=== PATIENT | male | born 1940 | race Caucasian/White ===

== ENCOUNTER 2019-09-26 14:52 | Emergency (ER) | payer OTHER ==
[~2019-09-26] VITALS: Ht 172.7 cm; Wt 100.0 kg
[2019-09-26] MEDS ORDERED: ATOR1TAB19 PO (15:06)
[2019-09-26] MEDS ORDERED: FLOM0.4C39 PO (15:06)
[2019-09-26] MEDS ORDERED: METO200T28 PO (15:06)
[2019-09-26 16:36] LABS: BASO % 0.5 % (0.0-1.0); EOS # 0.1 10^3/uL (0.0-0.5); EOS % 1.6 % (0.0-3.0); HEMATOCRIT 42.8 % (42.0-52.0); HEMOGLOBIN 13.7 g/dl (13.5-17.5); LYMPH # 0.7 10^3/uL (1.5-5.0); LYMPH % 8.2 % (24.0-44.0); MEAN CORPUSCULAR HEMOGLOBIN 29.9 pg (27.0-33.0); MEAN CORPUSCULAR VOLUME 93.4 fl (80.0-96.0); MONO # 0.8 10^3/uL (0.0-0.8); MONO % 9.1 % (0.0-5.0); NEUTROPHILS # 6.9 10^3/uL (1.5-8.5); NEUTROPHILS % 80.2 % (36.0-66.0); PLATELET COUNT, AUTOMATED 200 10^3/uL (150-450); RED BLOOD COUNT 4.58 10^6/uL (4.30-6.10); WHITE BLOOD COUNT 8.6 10^3/uL (4.0-10.0)
--- NOTE | 2019-09-26 19:12 | REPVR ---
PROCEDURE INFORMATION: Exam: US Pelvis Limited, Male Exam date and time: 09/26/2019 6:25 PM Age: 79 years old Clinical history: Bladder; Urine retention; Additional info: Urinary retention TECHNIQUE: Imaging protocol: Real-time pelvic ultrasound with image documentation. COMPARISON: No relevant prior studies available. FINDINGS: Bladder: Prevoid bladder volume 1925 cc. Post void bladder volume 1638 cc. 85.1% post void residual. Left ureteral jet is not seen. IMPRESSION: 85.1% post void residual. Electronically signed by: Jacoby Ny On 09/26/2019 19:11:57 PM
[2019-09-26] MEDS ORDERED: NS 1,000 ML IV ONE (19:30)
[2019-09-26] MEDS ORDERED: LIDOCAINE 2% 5ML JELLY UROJET TOP ONE (19:30)
--- NOTE | 2019-09-26 20:05 | REPVR ---
PROCEDURE INFORMATION: Exam: CT Abdomen And Pelvis Without Contrast Exam date and time: 09/26/2019 7:40 PM Age: 79 years old Clinical history: Abdominal pain; Generalized; Patient HX: Bun 53 creat 2.0; Additional info: ? Urinary obstruction TECHNIQUE: Imaging protocol: Computed tomography of the abdomen and pelvis without contrast. Radiation optimization: All CT scans at this facility use at least one of these dose optimization techniques: automated exposure control; mA and/or kV adjustment per patient size (includes targeted exams where dose is matched to clinical indication); or iterative reconstruction. COMPARISON: US Abdomen 2019-09-26 18:23 FINDINGS: Limitations: Study is limited by the absence of contrast. Tubes, catheters and devices: A balloon bladder catheter is present. Lungs: Dependent subsegmental pulmonary atelectasis. Liver: Normal. No mass. Gallbladder and bile ducts: Normal. No calcified stones. No ductal dilation. Pancreas: Normal. No ductal dilation. Spleen: Normal. No splenomegaly. Adrenals: Normal. No mass. Kidneys and ureters: Multiple left renal cysts measuring up to 3.9 cm. Stomach and bowel: Right rectal wall thickening, suspicious for neoplasm or proctitis, recommend direct correlation. Constipation. Appendix: No evidence of appendicitis. Intraperitoneal space: Unremarkable. No free air. No significant fluid collection. Vasculature: Unremarkable. No abdominal aortic aneurysm. Lymph nodes: Unremarkable. No enlarged lymph nodes. Bladder: Bladder still distended. Reproductive: Prostate gland mild enlargement. Bones/joints: Unremarkable. No acute fracture. Soft tissues: Small right inguinal hernia. IMPRESSION: 1. A balloon bladder catheter is present. Bladder still distended. 2. Right rectal wall thickening, suspicious for neoplasm or proctitis, recommend direct correlation. Electronically signed by: Jacoby Ny On 09/26/2019 20:04:41 PM
[2019-09-26 20:56] VITALS: BP 129/59
[2019-09-26] MEDS ORDERED: HYDR25SU23 PR (21:10)
[2019-09-26] MEDS ORDERED: COLA100C5 PO (21:10)
== END 2019-09-26 22:09 | disposition left against medical advice (07) ==
LOC: M ED 14:52
DX: R33.9 Retention of urine, unspecified (principal); K62.89 Other specified diseases of anus and rectum; S37.009A Unspecified injury of unspecified kidney, initial encounter; X58.XXXA Exposure to other specified factors, initial encounter; Y93.9 Activity, unspecified; I10 Essential (primary) hypertension; E78.5 Hyperlipidemia, unspecified; Z53.29 Procedure and treatment not carried out because of patient's decision for other reasons; Z87.891 Personal history of nicotine dependence; Z96.0 Presence of urogenital implants

== ENCOUNTER 2022-04-19 14:11 | Inpatient (IN) | payer MEDICARE, OTHER ==
[~2022-04-19] VITALS: Ht 174 cm; Wt 92.7 kg
[~2022-04-19 14:11] MED LIST: ATOR1TAB19 PO; COLA100C5 PO; FLOM0.4C39 PO; HYDR25SU23 PR; METO200T28 PO
[2022-04-19 15:20] LABS: BASO % 0.2 % (0.0-1.0); HEMATOCRIT 49.8 % (42.0-52.0); HEMOGLOBIN 16.7 g/dl (13.5-17.5); LYMPH # 0.6 10^3/uL (1.5-5.0); LYMPH % 4.8 % (24.0-44.0); MEAN CORPUSCULAR HEMOGLOBIN 30.4 pg (27.0-33.0); MEAN CORPUSCULAR HGB CONC 33.5 g/dl (32.0-36.5); MEAN CORPUSCULAR VOLUME 90.7 fl (80.0-96.0); MONO # 0.9 10^3/uL (0.0-0.8); MONO % 7.4 % (2.0-8.0); NEUTROPHILS # 10.9 10^3/uL (1.5-8.5); NEUTROPHILS % 87.2 % (36.0-66.0); PLATELET COUNT, AUTOMATED 204 10^3/uL (150-450); RED BLOOD COUNT 5.49 10^6/uL (4.30-6.10); WHITE BLOOD COUNT 12.5 10^3/uL (4.0-10.0)
[2022-04-19 15:41] LABS: ERYTHROCYTE SEDIMENTATION RATE 6 mm/hr (0-20)
[2022-04-19 15:55] LABS: RSV AMPLIFICATION NEGATIVE (NEGATIVE)
[2022-04-19 16:01] LABS: ALBUMIN 3.7 GM/DL (3.2-5.2); BILIRUBIN,DIRECT 0.3 MG/DL (0.0-0.2); C REACTIVE PROTEIN QUANTITATIV 1.71 MG/DL (0.00-0.30); CALCIUM LEVEL 9.7 MG/DL (8.8-10.2); CREATININE FOR GFR 1.53 MG/DL (0.70-1.30); GLOMERULAR FILTRATION RATE 46.9 (>35); POTASSIUM SERUM 4.8 MEQ/L (3.5-5.1); THYROID STIMULATING HORMONE 0.622 uIU/ML (0.358-3.740); TOTAL PROTEIN 7.5 GM/DL (6.4-8.2)
[2022-04-19 16:18] LABS: CK-MB VALUE MASS 70.6 NG/ML (<3.6); MB/CK RELATIVE INDEX 2.29 (< OR =4)
[2022-04-19] MEDS ORDERED: NS 500 ML IV ONE (17:15)
[2022-04-19] MEDS ORDERED: NS 1,000 ML IV ONE (18:30)
[2022-04-19] MEDS ORDERED: METO50TA7 PO (18:40)
[2022-04-19] MEDS ORDERED: FLOM0.4C39 PO (18:40)
[2022-04-19] MEDS ORDERED: LISI40TA4 PO (18:40)
[2022-04-19] MEDS ORDERED: ATOR1TAB21 PO (18:40)
[2022-04-19] MEDS ORDERED: FINA5TAB2 PO (18:40)
[2022-04-19 19:05] LABS: MAGNESIUM LEVEL 2.1 MG/DL (1.8-2.4)
[2022-04-19] MEDS ORDERED: HOME MED LIST COMPLETE! XX SCH (19:15)
[2022-04-19] MEDS ORDERED: amLODIPine 5 MG TAB PO ONE (20:00)
[2022-04-19 22:20] VITALS: BP 136/74
[2022-04-20] MEDS ORDERED: UNRESOLVED CLARIFICATION ENTRY XX SCH (00:01)
[2022-04-20 06:19] VITALS: BP 157/91
[2022-04-20 07:27] LABS: BASO # 0.1 10^3/uL (0.0-0.2); BASO % 0.6 % (0.0-1.0); EOS # 0.1 10^3/uL (0.0-0.5); EOS % 0.9 % (0.0-3.0); HEMATOCRIT 47.7 % (42.0-52.0); HEMOGLOBIN 15.5 g/dl (13.5-17.5); LYMPH # 0.8 10^3/uL (1.5-5.0); LYMPH % 8.8 % (24.0-44.0); MEAN CORPUSCULAR HEMOGLOBIN 29.4 pg (27.0-33.0); MEAN CORPUSCULAR HGB CONC 32.5 g/dl (32.0-36.5); MEAN CORPUSCULAR VOLUME 90.3 fl (80.0-96.0); MONO # 0.8 10^3/uL (0.0-0.8); MONO % 8.5 % (2.0-8.0); NEUTROPHILS # 7.4 10^3/uL (1.5-8.5); PLATELET COUNT, AUTOMATED 144 10^3/uL (150-450); RED BLOOD COUNT 5.28 10^6/uL (4.30-6.10); WHITE BLOOD COUNT 9.1 10^3/uL (4.0-10.0)
[2022-04-20 07:59] LABS: BLOOD UREA NITROGEN 23 MG/DL (7-18); CALCIUM LEVEL 9.2 MG/DL (8.8-10.2); CARBON DIOXIDE LEVEL 28 MEQ/L (21-32); CHLORIDE LEVEL 111 MEQ/L (98-107); CREATININE FOR GFR 1.21 MG/DL (0.70-1.30); GLOMERULAR FILTRATION RATE > 60.0 (>35); GLUCOSE, FASTING 103 MG/DL (70-100); POTASSIUM SERUM 3.6 MEQ/L (3.5-5.1); SODIUM LEVEL 145 MEQ/L (136-145)
[2022-04-20] MEDS: FINASTERIDE 5MG TAB PO SCH (09:06)
[2022-04-20] MEDS: METOPROLOL TART 50 MG TAB PO SCH ×2 (09:08→20:19)
[2022-04-20] MEDS: ATORVASTATIN 20 MG TAB PO SCH (09:08)
[2022-04-20] MEDS: TAMSULOSIN 0.4 MG CAP PO SCH (09:09)
[2022-04-20] MEDS: ENOXAPARIN 40MG/0.4ML SYRINGE (J1650 PER 10MG) SC SCH (09:10)
[2022-04-20 11:20] VITALS: BP 151/71
[2022-04-20] MEDS ORDERED: FUROSEMIDE 100MG/10ML VIAL (J1940) IV ONE (11:45)
[2022-04-20 12:00] VITALS: BP_SYST 123; BP_SYST 160; BP_DIAS 71; BP_DIAS 74
[2022-04-20] MEDS: ACETAMINOPHEN 500 MG TAB PO SCH ×2 (13:18→20:17)
[2022-04-20 14:00] VITALS: BP 140/59
[2022-04-20] MEDS: POTASSIUM CHLORIDE 10MEQ SR TABLET PO SCH ×2 (14:47→20:17)
[2022-04-20 21:00] VITALS: BP 123/60
[2022-04-21 02:00] VITALS: BP_SYST 123; BP_SYST 133; BP_DIAS 76; BP_DIAS 77
[2022-04-21 06:13] LABS: BASO # 0.1 10^3/uL (0.0-0.2); BASO % 0.7 % (0.0-1.0); EOS # 0.2 10^3/uL (0.0-0.5); EOS % 2.2 % (0.0-3.0); HEMATOCRIT 45.1 % (42.0-52.0); HEMOGLOBIN 14.5 g/dl (13.5-17.5); LYMPH # 0.8 10^3/uL (1.5-5.0); LYMPH % 10.4 % (24.0-44.0); MEAN CORPUSCULAR HEMOGLOBIN 29.4 pg (27.0-33.0); MEAN CORPUSCULAR HGB CONC 32.2 g/dl (32.0-36.5); MEAN CORPUSCULAR VOLUME 91.3 fl (80.0-96.0); MONO # 0.6 10^3/uL (0.0-0.8); MONO % 7.6 % (2.0-8.0); NEUTROPHILS # 5.7 10^3/uL (1.5-8.5); NEUTROPHILS % 78.8 % (36.0-66.0); PLATELET COUNT, AUTOMATED 144 10^3/uL (150-450); RED BLOOD COUNT 4.94 10^6/uL (4.30-6.10); WHITE BLOOD COUNT 7.2 10^3/uL (4.0-10.0)
[2022-04-21 06:29] VITALS: BP 130/72
[2022-04-21 06:41] LABS: BLOOD UREA NITROGEN 24 MG/DL (7-18); CALCIUM LEVEL 8.9 MG/DL (8.8-10.2); CARBON DIOXIDE LEVEL 29 MEQ/L (21-32); CHLORIDE LEVEL 110 MEQ/L (98-107); CREATININE FOR GFR 1.17 MG/DL (0.70-1.30); GLOMERULAR FILTRATION RATE > 60.0 (>35); GLUCOSE, FASTING 105 MG/DL (70-100); POTASSIUM SERUM 4.2 MEQ/L (3.5-5.1); SODIUM LEVEL 145 MEQ/L (136-145)
[2022-04-21 09:00] VITALS: BP_SYST 128; BP_SYST 132; BP_DIAS 75; BP_DIAS 76
[2022-04-21] MEDS: ATORVASTATIN 20 MG TAB PO SCH (09:05)
[2022-04-21] MEDS: ENOXAPARIN 40MG/0.4ML SYRINGE (J1650 PER 10MG) SC SCH (09:05)
[2022-04-21] MEDS: ACETAMINOPHEN 500 MG TAB PO SCH ×2 (09:05→20:18)
[2022-04-21] MEDS: FINASTERIDE 5MG TAB PO SCH (09:06)
[2022-04-21] MEDS: TAMSULOSIN 0.4 MG CAP PO SCH (09:06)
[2022-04-21] MEDS: POTASSIUM CHLORIDE 10MEQ SR TABLET PO SCH ×2 (09:06→20:19)
[2022-04-21] MEDS: METOPROLOL TART 25 MG TABLET PO SCH ×2 (09:11→20:19)
[2022-04-21] MEDS: KETOROLAC 30 MG/ML 1ML VIAL IV SCH (13:02)
[2022-04-21 14:00] VITALS: BP 133/74
[2022-04-21 20:02] VITALS: BP 134/69
[2022-04-21 21:00] VITALS: BP_SYST 146; BP_SYST 147; BP_DIAS 74
[2022-04-22] MEDS: KETOROLAC 30 MG/ML 1ML VIAL IV SCH ×2 (03:04→12:36)
[2022-04-22 05:26] VITALS: BP 165/77
[2022-04-22 06:36] LABS: BASO % 0.9 % (0.0-1.0); EOS # 0.2 10^3/uL (0.0-0.5); EOS % 4.9 % (0.0-3.0); HEMOGLOBIN 14.5 g/dl (13.5-17.5); LYMPH # 0.8 10^3/uL (1.5-5.0); LYMPH % 16.6 % (24.0-44.0); MEAN CORPUSCULAR HEMOGLOBIN 30.2 pg (27.0-33.0); MEAN CORPUSCULAR VOLUME 91.7 fl (80.0-96.0); MONO # 0.4 10^3/uL (0.0-0.8); MONO % 8.6 % (2.0-8.0); NEUTROPHILS # 3.1 10^3/uL (1.5-8.5); NEUTROPHILS % 68.8 % (36.0-66.0); PLATELET COUNT, AUTOMATED 126 10^3/uL (150-450); WHITE BLOOD COUNT 4.5 10^3/uL (4.0-10.0)
[2022-04-22 07:01] LABS: BLOOD UREA NITROGEN 27 MG/DL (7-18); CARBON DIOXIDE LEVEL 27 MEQ/L (21-32); CHLORIDE LEVEL 109 MEQ/L (98-107); GLOMERULAR FILTRATION RATE > 60.0 (>35); GLUCOSE, FASTING 96 MG/DL (70-100); POTASSIUM SERUM 4.4 MEQ/L (3.5-5.1); SODIUM LEVEL 143 MEQ/L (136-145)
[2022-04-22 09:00] VITALS: BP_SYST 138; BP_SYST 140; BP_DIAS 75; BP_DIAS 76
[2022-04-22] MEDS: POTASSIUM CHLORIDE 10MEQ SR TABLET PO SCH ×2 (09:12→20:37)
[2022-04-22] MEDS: FINASTERIDE 5MG TAB PO SCH (09:13)
[2022-04-22] MEDS: TAMSULOSIN 0.4 MG CAP PO SCH (09:13)
[2022-04-22] MEDS: METOPROLOL TART 25 MG TABLET PO SCH ×2 (09:13→20:37)
[2022-04-22] MEDS: ENOXAPARIN 40MG/0.4ML SYRINGE (J1650 PER 10MG) SC SCH (09:13)
[2022-04-22] MEDS: ACETAMINOPHEN 500 MG TAB PO SCH ×2 (09:13→20:37)
[2022-04-22] MEDS: ATORVASTATIN 20 MG TAB PO SCH (09:13)
[2022-04-22] MEDS ORDERED: FUROSEMIDE 40MG/4ML VIAL (J1940) IV SCH (11:15)
[2022-04-22] MEDS: FUROSEMIDE 40 MG TAB PO SCH (12:35)
[2022-04-22 14:00] VITALS: BP 124/63
[2022-04-22 22:00] VITALS: BP 152/91
[2022-04-22 22:46] VITALS: BP_SYST 147; BP_SYST 151; BP_DIAS 74; BP_DIAS 76
[2022-04-23] MEDS: KETOROLAC 30 MG/ML 1ML VIAL IV SCH ×3 (01:00→13:58)
[2022-04-23 06:00] VITALS: BP 146/87
[2022-04-23 08:10] LABS: BASO % 0.7 % (0.0-1.0); EOS # 0.2 10^3/uL (0.0-0.5); EOS % 3.7 % (0.0-3.0); HEMATOCRIT 46.1 % (42.0-52.0); HEMOGLOBIN 15.5 g/dl (13.5-17.5); LYMPH # 0.7 10^3/uL (1.5-5.0); LYMPH % 12.7 % (24.0-44.0); MEAN CORPUSCULAR HEMOGLOBIN 30.7 pg (27.0-33.0); MEAN CORPUSCULAR HGB CONC 33.6 g/dl (32.0-36.5); MEAN CORPUSCULAR VOLUME 91.3 fl (80.0-96.0); MONO # 0.4 10^3/uL (0.0-0.8); MONO % 8.2 % (2.0-8.0); NEUTROPHILS % 74.3 % (36.0-66.0); PLATELET COUNT, AUTOMATED 132 10^3/uL (150-450); RED BLOOD COUNT 5.05 10^6/uL (4.30-6.10); WHITE BLOOD COUNT 5.3 10^3/uL (4.0-10.0)
[2022-04-23 08:39] LABS: CREATININE FOR GFR 1.24 MG/DL (0.70-1.30); GLOMERULAR FILTRATION RATE 59.7 (>35); POTASSIUM SERUM 4.7 MEQ/L (3.5-5.1)
[2022-04-23] MEDS: ENOXAPARIN 40MG/0.4ML SYRINGE (J1650 PER 10MG) SC SCH (08:41)
[2022-04-23] MEDS: POTASSIUM CHLORIDE 10MEQ SR TABLET PO SCH ×2 (08:42→20:51)
[2022-04-23] MEDS: ACETAMINOPHEN 500 MG TAB PO SCH ×2 (08:42→20:51)
[2022-04-23] MEDS: FINASTERIDE 5MG TAB PO SCH (08:42)
[2022-04-23] MEDS: FUROSEMIDE 40 MG TAB PO SCH (08:42)
[2022-04-23] MEDS: TAMSULOSIN 0.4 MG CAP PO SCH (08:43)
[2022-04-23] MEDS: METOPROLOL TART 25 MG TABLET PO SCH ×2 (08:43→20:52)
[2022-04-23] MEDS: ATORVASTATIN 20 MG TAB PO SCH (08:43)
[2022-04-23 14:00] VITALS: BP 134/77
[2022-04-23 20:38] VITALS: BP 136/86
[2022-04-24] MEDS: KETOROLAC 30 MG/ML 1ML VIAL IV SCH (01:00)
[2022-04-24 05:09] VITALS: BP 146/77
[2022-04-24 06:14] LABS: BASO % 0.7 % (0.0-1.0); EOS # 0.2 10^3/uL (0.0-0.5); EOS % 4.3 % (0.0-3.0); HEMATOCRIT 47.6 % (42.0-52.0); HEMOGLOBIN 15.5 g/dl (13.5-17.5); LYMPH # 0.7 10^3/uL (1.5-5.0); LYMPH % 13.6 % (24.0-44.0); MEAN CORPUSCULAR HEMOGLOBIN 29.4 pg (27.0-33.0); MEAN CORPUSCULAR HGB CONC 32.6 g/dl (32.0-36.5); MEAN CORPUSCULAR VOLUME 90.3 fl (80.0-96.0); MONO # 0.5 10^3/uL (0.0-0.8); MONO % 9.2 % (2.0-8.0); NEUTROPHILS # 3.9 10^3/uL (1.5-8.5); PLATELET COUNT, AUTOMATED 133 10^3/uL (150-450); RED BLOOD COUNT 5.27 10^6/uL (4.30-6.10); WHITE BLOOD COUNT 5.4 10^3/uL (4.0-10.0)
[2022-04-24 06:30] LABS: BLOOD UREA NITROGEN 26 MG/DL (7-18); CALCIUM LEVEL 8.9 MG/DL (8.8-10.2); CARBON DIOXIDE LEVEL 28 MEQ/L (21-32); CHLORIDE LEVEL 105 MEQ/L (98-107); CREATININE FOR GFR 1.18 MG/DL (0.70-1.30); GLOMERULAR FILTRATION RATE > 60.0 (>35); GLUCOSE, FASTING 99 MG/DL (70-100); POTASSIUM SERUM 4.7 MEQ/L (3.5-5.1); SODIUM LEVEL 140 MEQ/L (136-145)
[2022-04-24] MEDS: FUROSEMIDE 40 MG TAB PO SCH (08:42)
[2022-04-24 08:43] VITALS: BP 129/74
[2022-04-24] MEDS: ATORVASTATIN 20 MG TAB PO SCH (08:43)
[2022-04-24] MEDS: FINASTERIDE 5MG TAB PO SCH (08:43)
[2022-04-24] MEDS: POTASSIUM CHLORIDE 10MEQ SR TABLET PO SCH (08:43)
[2022-04-24] MEDS: TAMSULOSIN 0.4 MG CAP PO SCH (08:43)
[2022-04-24] MEDS: METOPROLOL TART 25 MG TABLET PO SCH (08:43)
[2022-04-24] MEDS: ACETAMINOPHEN 500 MG TAB PO SCH (08:44)
[2022-04-24] MEDS: ENOXAPARIN 40MG/0.4ML SYRINGE (J1650 PER 10MG) SC SCH (08:44)
[2022-04-24] MEDS ORDERED: METO1TAB87 PO (09:53)
[2022-04-24] MEDS ORDERED: FURO40TA2 PO (09:53)
== END 2022-04-24 10:50 | DRG 557 ==
LOC: M ED 14:11 → M ED INP 18:29 → ENRESERV 19:58 → M MSPAV 20:45
PROVIDERS: ADMIT Internal Medicine Nephrology; ATTEND Internal Medicine Nephrology
PROC: B246ZZZ Ultrasonography of Right and Left Heart (ICD-10-PCS; principal; 2022-04-20)
DX: M62.82 Rhabdomyolysis (principal); I50.31 Acute diastolic (congestive) heart failure; N17.9 Acute kidney failure, unspecified; I13.0 Hypertensive heart and chronic kidney disease with heart failure and stage 1 through stage 4 chronic kidney disease, or unspecified chronic kidney disease; I47.1 Supraventricular tachycardia; Z66 Do not resuscitate; N18.30 Chronic kidney disease, stage 3 unspecified; N40.1 Benign prostatic hyperplasia with lower urinary tract symptoms; R33.9 Retention of urine, unspecified; R29.6 Repeated falls; Z79.899 Other long term (current) drug therapy; Z20.822 Contact with and (suspected) exposure to COVID-19; M17.0 Bilateral primary osteoarthritis of knee; Z98.49 Cataract extraction status, unspecified eye; Z87.891 Personal history of nicotine dependence; E78.5 Hyperlipidemia, unspecified; I27.20 Pulmonary hypertension, unspecified; I95.1 Orthostatic hypotension

== ENCOUNTER → 2022-04-29 | Outpatient (REF) | payer MEDICARE ==
[2022-04-28 08:16] LABS: BASO % 0.5 % (0.0-1.0); EOS % 1.5 % (0.0-3.0); HEMOGLOBIN 14.6 g/dl (13.5-17.5); LYMPH % 8.4 % (24.0-44.0); MEAN CORPUSCULAR HEMOGLOBIN 29.1 pg (27.0-33.0); MEAN CORPUSCULAR HGB CONC 31.7 g/dl (32.0-36.5); MEAN CORPUSCULAR VOLUME 91.8 fl (80.0-96.0); NEUTROPHILS % 80.1 % (36.0-66.0); PLATELET COUNT, AUTOMATED 160 10^3/uL (150-450); RED BLOOD COUNT 5.01 10^6/uL (4.30-6.10); WHITE BLOOD COUNT 8.5 10^3/uL (4.0-10.0)
[2022-04-28 08:17] LABS: EOS # 0.1 10^3/uL (0.0-0.5); LYMPH # 0.7 10^3/uL (1.5-5.0); MONO # 0.8 10^3/uL (0.0-0.8); NEUTROPHILS # 6.8 10^3/uL (1.5-8.5)
[2022-04-28 08:19] LABS: APPEARANCE, URINE CLEAR (CLEAR); BACTERIA, URINE AUTO 2+ (NEGATIVE); BILIRUBIN, URINE AUTO NEGATIVE (NEGATIVE); BLOOD, URINE BLOOD NEGATIVE (NEGATIVE); COLOR, URINE YELLOW (YELLOW); GLUCOSE, URINE (UA) AUTO NEGATIVE (NEGATIVE); KETONE, URINE AUTO NEGATIVE (NEGATIVE); LEUKOCYTE ESTERASE, URINE AUTO NEGATIVE (NEGATIVE); NITRITE, URINE AUTO NEGATIVE (NEGATIVE); PROTEIN, URINE AUTO NEGATIVE (NEGATIVE); RBC, URINE AUTO 0 /HPF (0-3); SPECIFIC GRAVITY URINE AUTO 1.015 (1.002-1.035); SQUAMOUS EPITHELIAL CELL UR AU 0 /HPF (0-6); UROBILINOGEN, URINE AUTO 0.2 mg/dL (0.0-2.0); WBC, URINE AUTO 0 /HPF (0-3)
[2022-04-28 08:41] LABS: ALBUMIN 3.1 GM/DL (3.2-5.2); BILIRUBIN,TOTAL 0.7 MG/DL (0.2-1.0); CREATININE FOR GFR 1.86 MG/DL (0.70-1.30); GLOMERULAR FILTRATION RATE 37.4 (>35); MAGNESIUM LEVEL 2.4 MG/DL (1.8-2.4); POTASSIUM SERUM 5.2 MEQ/L (3.5-5.1)
[~2022-04-29] MED LIST changes: +ATOR1TAB21 PO; +FINA5TAB2 PO; +FURO40TA2 PO; +LISI40TA4 PO; +METO1TAB87 PO; +METO50TA7 PO
== END ==
LOC: SKLAB4 08:28
PROVIDERS: ATTEND Nurse Practitioner Family
DX: N18.9 Chronic kidney disease, unspecified (principal); I12.9 Hypertensive chronic kidney disease with stage 1 through stage 4 chronic kidney disease, or unspecified chronic kidney disease; N40.0 Benign prostatic hyperplasia without lower urinary tract symptoms

== ENCOUNTER → 2022-05-01 | Outpatient (REF) ==
[2022-05-01 09:39] LABS: ALBUMIN 3.1 GM/DL (3.2-5.2); BILIRUBIN,TOTAL 0.7 MG/DL (0.2-1.0); CALCIUM LEVEL 9.1 MG/DL (8.8-10.2); CREATININE FOR GFR 1.45 MG/DL (0.70-1.30); GLOMERULAR FILTRATION RATE 49.9 (>35); POTASSIUM SERUM 4.4 MEQ/L (3.5-5.1); TOTAL PROTEIN 6.2 GM/DL (6.4-8.2)
== END ==
LOC: SKLAB4 07:00
PROVIDERS: ATTEND Nurse Practitioner Family
DX: I50.9 Heart failure, unspecified (principal); I11.0 Hypertensive heart disease with heart failure